=== PATIENT | female | born 1995 | race Two or more races ===

== ENCOUNTER 2020-04-09 10:48 | Emergency (ER) | payer OTHER ==
[~2020-04-09] VITALS: Ht 160 cm; Wt 61.2 kg
[2020-04-09] MEDS ORDERED: PEPCID AC20 MG PO (13:14)
[2020-04-09] MEDS ORDERED: MOTION SICKNESS25 M1 PO (13:23)
== END 2020-04-09 13:54 | disposition home or self-care (01) ==
LOC: ER 10:48
DX: R11.2 Nausea with vomiting, unspecified (principal); Z20.828 Contact with and (suspected) exposure to other viral communicable diseases

== ENCOUNTER 2020-06-03 15:14 | Emergency (ER) | payer OTHER ==
[~2020-06-03] VITALS: Ht 160 cm; Wt 61.2 kg
[~2020-06-03 15:14] MED LIST: MOTION SICKNESS25 M1 PO; PEPCID AC20 MG PO
== END 2020-06-03 17:43 | disposition home or self-care (01) ==
LOC: ER 15:14
DX: N30.81 Other cystitis with hematuria (principal)